=== PATIENT | male | born 1945 | race Caucasian/White ===

== ENCOUNTER → 2017-11-05 | Outpatient (CLI) | payer OTHER | LOC: M RAD 11:07 | DX: G91.2 (Idiopathic) normal pressure hydrocephalus (principal); I73.9 Peripheral vascular disease, unspecified; Z98.2 Presence of cerebrospinal fluid drainage device | CPT/HCPCS: 70450 ==

== ENCOUNTER → 2018-12-02 | Outpatient (CLI) | payer OTHER ==
[~2018-12-02] MED LIST: ASPI-1 PO; BUPR150T3 PO; CHRO500T4 PO; FINA5TAB2 PO; LEVO88TA3 PO; LOSA25TA14 PO; METF500T13 PO; OMEP40CA2 PO; RANI15TA PO; SERT-141 PO; SIMV40TA2 PO; TERA10CA3 PO; VITA200028 PO
--- NOTE | 2018-12-02 08:58 | REP ---
CT Head without contrast HISTORY: Hydrocephalus COMPARISON: 11/05/2017 Areas of decreased attenuation are present in the periventricular white matter. This represents small-vessel ischemic disease. There is no intraparenchymal hemorrhage, acute infarct, mass or midline shift. The ventricular system and cortical sulci are dilated consistent with minimal volume loss. A ventricular shunt is present with its tip in the anterior horn of the left lateral ventricle. There is no hydrocephalus. There is no extra cerebral collection. There is no fracture. The visualized sinuses are clear. IMPRESSION: 1. Small vessel ischemic disease. 2. Minimal volume loss. 04/15 ventricular shunt is present in the left lateral ventricle. There is no hydrocephalus. Electronically Signed by Ken Guerra MD 12/02/2018 08:50 A
== END ==
LOC: M RAD 08:25
PROVIDERS: ATTEND Chiropractor
DX: I67.82 Cerebral ischemia (principal); Z98.2 Presence of cerebrospinal fluid drainage device

== ENCOUNTER → 2020-07-14 | Outpatient (REF) | payer OTHER, MEDICARE ==
[~2020-07-14] MED LIST changes: +CALC600T60 PO; +CETI10CH PO; +JARD1TAB PO; +LEXA1TAB PO; +LOSA100T50 PO; -OMEP40CA2 PO; +OMEP40CA97 PO; -SIMV40TA2 PO; +SIMV40TA20 PO
[2020-07-14 18:26] LABS: CREATININE, URINE 38.1 MG/DL; MALB URINE SIEMENS < 5.0 MG/L; MAU/CREAT RATIO 13.1 MCG/MG (0.0-30.0)
== END ==
LOC: M LAB REF 17:15
PROVIDERS: ATTEND Nurse Practitioner Family
DX: E11.9 Type 2 diabetes mellitus without complications (principal)

== ENCOUNTER → 2021-07-12 | Outpatient (REF) | payer OTHER, MEDICARE ==
[~2021-07-12] MED LIST changes: +BUPR150T12 PO; -BUPR150T3 PO; +LOSA100T45 PO; -LOSA100T50 PO; +LOSA25TA13 PO; -LOSA25TA14 PO; +OMEP40CA4 PO; -OMEP40CA97 PO
[2021-07-12 14:31] LABS: MAU/CREAT RATIO 6.4 MCG/MG (0.0-30.0)
== END ==
LOC: M LAB REF 13:28
PROVIDERS: ATTEND Nurse Practitioner Family
DX: E11.9 Type 2 diabetes mellitus without complications (principal)

== ENCOUNTER → 2022-02-03 | Outpatient (REF) | payer OTHER, MEDICARE | LOC: M SFHCDERM 14:09 | PROVIDERS: ATTEND Nurse Practitioner Family | DX: C44.329 Squamous cell carcinoma of skin of other parts of face (principal) | CPT/HCPCS: 11102; 88305; G0463 ==

== ENCOUNTER → 2022-07-17 | Outpatient (REF) | payer OTHER, MEDICARE | LOC: M SFHCDERM 17:10 | PROVIDERS: ATTEND Physician Assistant | DX: C44.301 Unspecified malignant neoplasm of skin of nose (principal) ==

== ENCOUNTER → 2023-01-25 | Outpatient (REF) | payer MEDICARE, OTHER ==
[~2023-01-25] MED LIST changes: -LOSA100T45 PO; +LOSA100T46 PO
== END ==
LOC: M SFHCDERM 12:11
PROVIDERS: ATTEND Physician Assistant
DX: D49.2 Neoplasm of unspecified behavior of bone, soft tissue, and skin (principal)
CPT/HCPCS: 11102; 17000; 17003; 17110; 88305; G0463